=== PATIENT | female | born 1970 | race Caucasian/White ===

== ENCOUNTER → 2019-04-20 09:26 | Outpatient (BNVA) | payer BC, SELFPAY | PROVIDERS: Family Provider Family Medicine; PCP Family Medicine; Visit Provider Family Medicine | DX: I10 Essential (primary) hypertension (principal) | CPT/HCPCS: 36415; 80053; 80061; 84439; 84443 ==

== ENCOUNTER → 2020-07-04 16:02 | Outpatient (BNVA) | payer BC, SELFPAY | PROVIDERS: Family Provider Family Medicine; PCP Family Medicine; Visit Provider Nurse Practitioner Family | DX: J01.90 Acute sinusitis, unspecified (principal); B97.89 Other viral agents as the cause of diseases classified elsewhere; I10 Essential (primary) hypertension; Z68.32 Body mass index [BMI] 32.0-32.9, adult | CPT/HCPCS: 80053; 80061; 84443; 85025 ==

== ENCOUNTER → 2020-10-06 16:03 | Outpatient (BNVA) | payer BC, SELFPAY | PROVIDERS: Family Provider Family Medicine; PCP Family Medicine; Visit Provider Family Medicine | DX: B97.89 Other viral agents as the cause of diseases classified elsewhere (principal); J01.90 Acute sinusitis, unspecified; Z20.822 Contact with and (suspected) exposure to COVID-19 | CPT/HCPCS: 87635 ==

== ENCOUNTER → 2022-11-21 17:22 | Outpatient (BNVA) | payer OTHER, SELFPAY | PROVIDERS: Family Provider Family Medicine; PCP Family Medicine; Visit Provider Nurse Practitioner Family | DX: I10 Essential (primary) hypertension (principal) | CPT/HCPCS: 80053; 80061; 84443 ==

== ENCOUNTER 2023-01-08 07:00 | Outpatient (CLI) | payer OTHER, SELFPAY ==
--- NOTE | 2023-01-08 07:45 | US_ITS ---
WS: [id number] RIGHT UPPER QUADRANT ULTRASOUND HISTORY: R74.8 - Abnormal levels of other serum enzymes COMPARISON: None available. Liver: 17.5 cm in length. Mildly enlarged liver. Mild diffuse hepatic steatosis with few areas of fat ty sparing. Portal Vein: Normal hepatopetal flow with monophasic waveform. Gallbladder: Small, subcentimeter mobile stone within the gallbladder. No pericholecystic fluid or ga llbladder wall thickening. CBD: 0.3 cm Pancreas: Normal size and echogenicity. Right kidney: 12.3 cm in length. Normal size and echogenicity. No hydronephrosis or mass. Aorta and IVC: Unremarkable abdominal aorta and IVC. No ascites. IMPRESSION: 1. Cholelithiasis. No evidence for acute cholecystitis. 2. No bile duct dilatation. 3. Mildly enlarged liver with hepatic steatosis and areas of fatty sparing.
== END 2023-01-08 07:01 | disposition home or self-care (01) ==
LOC: RAD 07:00
PROVIDERS: Family Provider Family Medicine; PCP Family Medicine; Visit Provider Nurse Practitioner Family
DX: K80.20 Calculus of gallbladder without cholecystitis without obstruction (principal); K76.0 Fatty (change of) liver, not elsewhere classified; R16.0 Hepatomegaly, not elsewhere classified; R74.8 Abnormal levels of other serum enzymes
CPT/HCPCS: 76705

== ENCOUNTER 2023-01-23 14:50 | Outpatient (CLI) | payer OTHER, SELFPAY ==
--- NOTE | 2023-01-23 15:00 | MM_ITS ---
WS: [id number] BILATERAL 3D TOMOSYNTHESIS DIGITAL SCREENING MAMMOGRAPHY WITH CAD CLINICAL INFORMATION: SCREENING HISTORY: Screening mammogram. No current complaints. COMPARISON: 2020 TECHNIQUE: Bilateral CC and MLO views. FINDINGS: Scattered fibroglandular densities bilaterally. No suspicious focal mass, asymmetry, calcifications, or architectural distortion. No evidence of malignancy. A few incidental punctate calcifications. IMPRESSION: MM/[place] [id number] BI-RADS: 2-Benign FOLLOW UP: 1 Year Follow-up Recommend return to annual screening mammography.
== END 2023-01-23 14:51 | disposition home or self-care (01) ==
LOC: MOBLMAM 14:55
PROVIDERS: Family Provider Obstetrics & Gynecology; PCP Nurse Practitioner Family; Visit Provider Nurse Practitioner Family
DX: Z12.31 Encounter for screening mammogram for malignant neoplasm of breast (principal)
CPT/HCPCS: 77063; 77067

== ENCOUNTER → 2023-12-23 09:00 | Outpatient (BNVA) | payer OTHER, SELFPAY | PROVIDERS: Family Provider Obstetrics & Gynecology; PCP Nurse Practitioner Family; Visit Provider Nurse Practitioner Family | DX: M25.50 Pain in unspecified joint (principal); M25.60 Stiffness of unspecified joint, not elsewhere classified | CPT/HCPCS: 80053; 82306; 84443; 85025; 85651; 86140; 86200; 86431 ==

== ENCOUNTER → 2024-01-17 10:30 | Outpatient (BNVA) | payer OTHER, SELFPAY | PROVIDERS: Family Provider Obstetrics & Gynecology; PCP Nurse Practitioner Family; Visit Provider Nurse Practitioner Family | DX: R79.82 Elevated C-reactive protein (CRP) (principal); R73.09 Other abnormal glucose | CPT/HCPCS: 80061; 83036; 86140 ==

== ENCOUNTER → 2024-01-27 15:10 | Outpatient (BNVA) | payer OTHER, SELFPAY | PROVIDERS: Family Provider Obstetrics & Gynecology; PCP Nurse Practitioner Family; Visit Provider Podiatrist Foot & Ankle Surgery | DX: M79.672 Pain in left foot (principal); M72.2 Plantar fascial fibromatosis | CPT/HCPCS: 73630 ==

== ENCOUNTER 2024-02-05 12:18 | Day surgery (SDC) | payer OTHER, SELFPAY ==
[2024-02-05 13:29] VITALS: BP 152/96; PULSE 94; RESP 18; TEMP 36.7; O2SAT 95; BMI 32.1
[2024-02-05 13:29] LABS: OR HCG Qualitative Urine Negative (Negative)
[2024-02-05] MEDS: sodium chloride 0.9% 1,000 ML 30 ML IV (13:42)
--- NOTE | 2024-02-05 13:43 | ANES.PREANE2 ---
Pre-Anesthetic Assessment Height/Weight: Height 1.55 m Weight 77.111 kg Temp Pulse Resp BP Pulse Ox O2 Del Method 98.1 F 94 18 152/96 95 Room Air 02/05/24 13:29 02/05/24 13:29 02/05/24 13:29 02/05/24 13:29 02/05/24 13:29 02/05/24 13:29 Preop Diagnosis: screening Operation Date: 02/05/24 13:45 Proposed Procedures p Colonoscopy [id number], [id number](Not Applicable) - Fantasma Wilson DO Familial anesthetic complications: none Was Beta Jeannine taken within 24 hours: N/A Was Clonidine taken within 24 hours: N/A Last intake: Intake Last Liquid Date 02/05/24 Last Liquid Time 07:00 Last Solid Date 02/03/24 Last Solid Time 20:00 Social No alcohol and No tobacco Exam alert, oriented x 3, clear to auscultation bilaterally and regular rate & rhythm Airway Submandibular: within normal limits Cervical ROM: within normal limits Mallampati: Class II Dentition: full Pulmonary None reported CV/HEM Hypertension None reported Hepatic None reported GI None reported Metabolic Diabetes Mellitus (non-insulin dependent) [facility] [place] None reported Neuropsych Anxiety Anesthetic Plan ASA status: 2 Anesthesia: MAC Medications/Allergies Home Medications Medication Instructions Recorded Confirmed Last Taken Type cetirizine 10 mg tablet (Zyrtec) 10 mg PO QDAY 04/06/19 02/05/24 4 Months Ago History ~10/03/23 coenzyme Q10 10 mg capsule (Co 10 mg PO ONCE 04/06/19 02/05/24 02/02/24 History Q-10) fluticasone propionate 50 1 spray intranasal Q12H 04/06/19 02/05/24 4 Months Ago History mcg/actuation nasal ~10/03/23 spray,suspension (Flonase Allergy Relief) ibuprofen 800 mg tablet 800 mg PO Q8H PRN Pain 04/06/19 02/05/24 02/02/24 History multivitamin,uh-fjvb-hzjfejpt 1 tab PO QDAY 04/06/19 02/05/24 02/03/24 History (Complete Multivitamin tablet) red yeast rice 600 mg capsule 600 mg PO QDAY 04/06/19 02/05/24 02/03/24 History acetaminophen 325 mg capsule 325 mg PO QID PRN Pain 07/20/19 02/05/24 02/01/24 History (Tylenol) ketotifen fumarate 0.025 % (0.035 1 drp ophthalmic (eye) BID #5 mL 07/03/23 02/05/24 1 Week Ago Rx %) eye drops (Zaditor) ~01/27/24 cholecalciferol (vitamin D3) 1,250 50,000 unit PO .weekly 8 weeks #8 01/17/24 02/05/24 01/30/24 Rx mcg (50,000 unit) capsule caps blood sugar diagnostic #100 ea 01/22/24 02/05/24 Unknown Rx blood-glucose meter #1 ea 01/22/24 02/05/24 Unknown Rx lancets 32 gauge #100 ea 01/22/24 02/05/24 Unknown Rx methylprednisolone 4 mg tablets in See Rx Instructions PO PER PKG DIR 01/27/24 02/05/24 02/03/24 Rx a dose pack (Medrol (Branden)) #21 ea cinnamon bark 500 mg capsule 1,200 mg PO DAILY 02/03/24 02/05/24 02/03/24 History (Cinnamon) lisinopril 10 mg tablet 10 mg PO DAILY 02/03/24 02/05/24 02/03/24 History metformin 1,000 mg tablet 1,000 mg PO BIDWMEAL #180 tabs 02/05/24 02/05/24 02/04/24 Rx Allergies Allergy/AdvReac Type Severity Reaction Status Date / Time aspirin Allergy Unknown unknown Verified 01/27/24 15:19 Penicillins Allergy Unknown unknown Verified 01/27/24 15:19 Current Medications Generic Name Dose Route Start Last Admin Trade Name Freq PRN Reason Stop Dose Admin Sodium Chloride 1,000 mls @ 30 mls/hr 02/05/24 12:45 02/05/24 13:42 Sodium Chloride 0.9% IV 02/06/24 12:44 30 mls/hr .Q24H CHAPIN Administration PFSH Anesthesia Medical History Hyperlipidemia Hypertension Family History Father Diabetes Stroke Heart attack Mother Diabetes Social History Smoking and tobacco/nicotine status: never used tobacco/nicotine Alcohol intake: current Alcohol intake frequency: holidays/special occasions only Data Anesthesia Cardiac Studies: No Data to Display
[2024-02-05 13:47] LABS: Glucose Point of Care 113 mg/dL (70-110)
--- NOTE | 2024-02-05 14:13 | W.PM.OPSUD ---
Surgery/Procedure H&P Update DATE OF PROCEDURE: February 05, 2024 DATE H&P PERFORMED: 01/06/24 H&P UPDATE INFORMATION: I have reviewed H&P completed within last 30 days, I have examined patient prior to procedure and No changes to prior documentation PREOP DIAGNOSIS: screening PLANNED PROCEDURE: Operation Date: 02/05/24 13:45 Proposed Procedures p Colonoscopy 97390, [id number](Not Applicable) - Fantasma Wilson DO
[2024-02-05 14:37] VITALS: BP 104/58; PULSE 93; RESP 16; TEMP 36.3; O2SAT 96
[2024-02-05 14:42] VITALS: BP 112/73; PULSE 95; RESP 16; O2SAT 99
[2024-02-05 14:47] VITALS: BP 131/97; PULSE 89; RESP 16; O2SAT 98
--- NOTE | 2024-02-05 15:00 | ANE.PACU2 ---
Inpatient post-anesthesia follow up: Airway intact: Yes Vital signs: Temperature 97.3 F Pulse Rate 89 Respiratory Rate 16 Blood Pressure 131/97 Pulse Oximetry 98 Oxygen Delivery Me thod Room Air Oxygen Flow Rate Fraction of Inspir ed Oxygen Hydration adequate: Yes Nausea and vomiting: No Pain level: 1 Mental status: Baseline
== END 2024-02-05 15:03 | disposition home or self-care (01) ==
PROVIDERS: Anesthesiology; Family Provider Obstetrics & Gynecology; PCP Nurse Practitioner Family; Visit Provider Surgery
PROC: 0DJD8ZZ Inspection of Lower Intestinal Tract, Via Natural or Artificial Opening Endoscopic (ICD-10-PCS; CPT 45378; principal; 2024-02-05 13:45)
DX: Z12.11 Encounter for screening for malignant neoplasm of colon (principal); Z83.79 Family history of other diseases of the digestive system; D12.5 Benign neoplasm of sigmoid colon; I10 Essential (primary) hypertension; E11.9 Type 2 diabetes mellitus without complications; F41.9 Anxiety disorder, unspecified; Z79.84 Long term (current) use of oral hypoglycemic drugs; E78.5 Hyperlipidemia, unspecified
CPT/HCPCS: 36416; 45385; 81025; 82962; 88305; J2704; J7030

== ENCOUNTER 2024-04-07 08:03 | Outpatient (CLI) | payer OTHER, SELFPAY ==
--- NOTE | 2024-04-07 08:10 | MM_ITS ---
WS: [id number] BILATERAL 3D TOMOSYNTHESIS DIGITAL SCREENING MAMMOGRAPHY WITH CAD CLINICAL INFORMATION: SCREENING HISTORY: Screening mammogram. No current complaints. COMPARISON: 2022 TECHNIQUE: Bilateral CC and MLO views. FINDINGS: Scattered fibroglandular densities bilaterally. No suspicious focal mass, asymmetry, calcifications, or architectural distortion. No evidence of malignancy. Few incidental calcifications. MM/MM [facility] tomosynthesis [id number] IMPRESSION: DENSITY: There are scattered areas of fibroglandular density. BI-RADS: 2 - Benign. FOLLOW UP: 1 Year Follow-up Recommend return to annual screening mammography.
== END 2024-04-07 08:04 | disposition home or self-care (01) ==
LOC: RAD 08:04
PROVIDERS: Family Provider Obstetrics & Gynecology; PCP Nurse Practitioner Family; Visit Provider Nurse Practitioner Family
DX: Z12.31 Encounter for screening mammogram for malignant neoplasm of breast (principal); R92.323 Mammographic fibroglandular density, bilateral breasts; R92.1 Mammographic calcification found on diagnostic imaging of breast
CPT/HCPCS: 77063; 77067

== ENCOUNTER → 2024-05-04 09:26 | Outpatient (BNVA) | payer OTHER, SELFPAY | PROVIDERS: Family Provider Obstetrics & Gynecology; PCP Nurse Practitioner Family; Visit Provider Nurse Practitioner Family | DX: E11.65 Type 2 diabetes mellitus with hyperglycemia (principal) | CPT/HCPCS: 83036 ==

== ENCOUNTER → 2024-07-31 09:00 | Outpatient (BNVA) | payer OTHER, SELFPAY | PROVIDERS: Family Provider Obstetrics & Gynecology; PCP Nurse Practitioner Family; Visit Provider Nurse Practitioner Family | DX: E78.00 Pure hypercholesterolemia, unspecified (principal); E11.65 Type 2 diabetes mellitus with hyperglycemia; E55.9 Vitamin D deficiency, unspecified | CPT/HCPCS: 80053; 80061; 82306; 83036 ==

== ENCOUNTER → 2024-11-13 08:29 | Outpatient (BNVA) | payer OTHER, SELFPAY | PROVIDERS: Family Provider Obstetrics & Gynecology; PCP Nurse Practitioner Family; Visit Provider Nurse Practitioner Family | DX: I10 Essential (primary) hypertension (principal); E11.65 Type 2 diabetes mellitus with hyperglycemia; Z95.5 Presence of coronary angioplasty implant and graft | CPT/HCPCS: 80053; 80061; 83036 ==

== ENCOUNTER → 2025-02-23 08:30 | Outpatient (BNVA) | payer OTHER, SELFPAY | PROVIDERS: Family Provider Obstetrics & Gynecology; PCP Nurse Practitioner Family; Visit Provider Nurse Practitioner Family | DX: E11.65 Type 2 diabetes mellitus with hyperglycemia (principal) | CPT/HCPCS: 82043; 83036 ==